=== PATIENT | female | born 1955 | race Caucasian/White ===

== ENCOUNTER 2016-12-13 05:34 | Inpatient (IN) | payer OTHER ==
--- NOTE | 2016-12-12 15:24 | GHP ---
[f rep st] PREOP HISTORY AND PHYSICAL DATE OF ADMISSION: 12/13/2016 HISTORY: The patient is a 61-year-old female who presents with left hip pain. Her left hip is painf ul. She has limited motion. She has aching into her thigh. This is causing her to limp, impacting her gait and significantly impacting her quality of life and activities of daily living. She has tri ed conservative measures, including anti-inflammatory medication, and has tried to stay active and ma intain her motion and fitness. Her x-ray shows severe left hip osteoarthritis, [id number], through out the hip joint. There is subchondral sclerosis, degenerative lipping. A left total hip arthropla sty is planned. PAST SURGICAL HISTORY: The patient has had her right hip replaced and that was back in February. She has had a radial head resection for a comminuted fracture in April of 2015. PAST MEDICAL HISTORY: She has a history of arthritis and mild depression. MEDICATIONS: Include omeprazole 20 mg tablets p.o. daily, meloxicam 15 mg p.o. daily, bupropion hydr ochloride XR 150 mg daily, venlafaxine ER 75 mg extended release 1 tablet with breakfast. ALLERGIES: She has an allergy to sulfa. SOCIAL HISTORY: She is a nonsmoker. REVIEW OF SYSTEMS: Is negative for cardiopulmonary disease. PHYSICAL EXAM: GENERAL: The patient is a well-developed, well-nourished female in no apparent distr ess. HEAD AND NECK: Normocephalic, atraumatic. CHEST: Clear. CARDIOVASCULAR: Regular rate and r hythm. ABDOMEN: Soft. NEUROLOGIC: She is alert and oriented x3. EXTREMITIES: Examination of the left hip shows shortening of about 5 mm or so. She has only 90 degrees of flexion then pain, only 3 0 degrees of adduction, really no internal rotation, 10 degrees of external rotation. Her replaced r ight hip is flexible and pain-free. On the left side, her neurovascular exam appears intact. IMAGING: X-ray, as described, shows a stable right total hip. On the left side, she has bone-to-bon e wear, subchondral sclerosis, degenerative lipping, and radiographically and clinically she has a li ttle shortening on the left as well. IMPRESSION: Left hip osteoarthritis. PLAN: The planned procedure is a left total hip arthroplasty. The benefits and risks of surgery have been reviewed. She understands that the risks include infecti on, damage to blood vessels and nerves, failure or loosening of components and need for revision, blo od clot in the leg or lungs, bleeding and the need for transfusion, and she is well aware of the reha b process having gone through this on the opposite side. She has signed the consent form and wishes to proceed. /[id number]/MODL
[2016-12-13] MEDS ORDERED: ROPIVACAINE 0.2% 80 MG, EPINEPHrine 0.2 MG, KETOROLAC TROMETHAMINE 30 MG in BAG 0 ML IU ONE (06:00)
[2016-12-13] MEDS ORDERED: TRANEXAMIC ACID IV ONE (06:00)
[2016-12-13] MEDS ORDERED: POVIDONE-IODINE 20 ML in SODIUM CL IRRIG SOLUTION 500 ML IRR ONE (06:00)
[2016-12-13] MEDS ORDERED: NS IV ONE (06:00)
[2016-12-13] MEDS ORDERED: ceFAZolin 2 GM/DEXTROSE 100 ML IV ONE (06:07)
[2016-12-13] MEDS ORDERED: FAMOTIDINE 20 MG TAB PO ONE (06:07)
[2016-12-13] MEDS ORDERED: DEXAMETHASONE 4 MG/ML VIAL IVP ONE (06:07)
[2016-12-13] MEDS ORDERED: ACETAMINOPHEN 325 MG TAB PO ONE (06:07)
[2016-12-13] MEDS ORDERED: LR 1,000 ML IV ONE (06:16)
[2016-12-13] MEDS ORDERED: MIDAZOLAM 2 MG/2 ML VIAL IVP ONE (06:46)
--- NOTE | 2016-12-13 06:46 | PDANEPAE ---
ANE History of Present Illness here for L EFREN ANE Past Medical History - Cardiovascular History Hx Hypertension: No Hx Arrhythmias: No Hx Chest Pain: No Hx Coronary Artery / Peripheral Vascular Disease: No Hx CHF / Valvular Disease: No Hx Palpitations: No - Pulmonary History Hx COPD: No Hx Asthma/Reactive Airway Disease: No Hx Recent Upper Respiratory Infection: No Hx Oxygen in Use at Home: No Hx Sleep Apnea: No Sleep Apnea Screening Result - Last Documented: Negative - Neurologic History Hx Cerebrovascular Accident: No Hx Seizures: No Hx Dementia: No - Endocrine History Hx Diabetes: No - Renal History Hx Renal Disorders: No - Liver History Hx Hepatic Disorders: No - Neurological & Psychiatric Hx Hx Neurological and Psychiatric Disorders: Yes Neurological / Psychiatric History Comment: depression. - Cancer History Hx Cancer: No - Congenital Disorder History Hx Congenital Disorders: No - GI History Hx Gastrointestinal Disorders: Yes Gastrointestinal History Comment: hiatal hernia - Other Health History Other Health History: none - Chronic Pain History Chronic Pain: No - Surgical History Prior Surgeries: april rx radius fixation ANE Review of Systems Review of Systems: - Exercise capacity METS (RN): 4 METS ANE Patient History - Allergies Allergies/Adverse Reactions: Sulfa (Sulfonamide Antibiotics) Allergy (Verified 11/11/16 14:31) Rash - Home Medications Home medications: home medication list seen and reviewed Home Medications: Meloxicam 15 mg PO DAILY 11/11/16 [Last Taken 12/06/16] Omeprazole [Prilosec 20 mg] 20 mg PO DAILY 11/11/16 [Last Taken 12/13/16 06:00] Venlafaxine Xr [Effexor Xr 75MG (*)] 75 mg PO DAILY 11/11/16 [Last Taken 06:00] buPROPion [Wellbutrin 75mg (*)] 75 mg PO DAILY 11/11/16 [Last Taken 12/13/16 06: 00] - NPO status NPO Status: no food or drink >8 hours NPO Since - Liquids (Date): 12/12/16 NPO Since - Liquids (Time): 21:00 NPO Since - Solids (Date): 12/12/16 NPO Since - Solids (Time): 18:00 - Anes Hx Anes Hx: no prior problems - Smoking Hx Smoking Status: Never smoked - Family Anes Hx Family Hx Anesthesia Complications: none ANE Labs/Vital Signs - Vital Signs Blood Pressure: 135/80 Heart Rate: 74 Respiratory Rate: 17 O2 Sat (%): 93 Height: 152.4 cm Weight: 74.389 kg ANE Physical Exam - Airway Neck exam: FROM Mallampati Score: Class 1 - Pulmonary Pulmonary: no respiratory distress - Cardiovascular Cardiovascular: regular rate and rhythym - ASA Status ASA Status: II ANE Anesthesia Plan Anesthesia Plan: spinal
[2016-12-13] MEDS ORDERED: DEXAMETHASONE 4 MG/ML VIAL ONE (06:56)
[2016-12-13] MEDS ORDERED: ceFAZolin 1 GM/5 ML SYR ONE (07:03)
[2016-12-13] MEDS ORDERED: fentaNYL 100 MCG/2 ML INJ ONE (07:06)
[2016-12-13] MEDS ORDERED: PROPOFOL/EMULSION 500 MG/50 ML BOTTLE IV ONE ×2 (07:08→08:13)
[2016-12-13] MEDS ORDERED: LR 500 ML IV PRN (07:54)
[2016-12-13] MEDS ORDERED: ALBUTEROL 3 ML DEYVIAL IH PRN (07:54)
[2016-12-13] MEDS ORDERED: HYDROCODONE/APAP 5/325 TAB PO PRN (07:54)
[2016-12-13] MEDS ORDERED: fentaNYL 100 MCG/2 ML INJ IVP PRN (07:54)
[2016-12-13] MEDS ORDERED: NALOXONE HCL 0.4 MG/ML INJ IVP PRN (07:54)
[2016-12-13] MEDS ORDERED: ONDANSETRON 4 MG/2 ML VIAL IVP PRN ×2 (07:54→09:55)
[2016-12-13] MEDS ORDERED: ONDANSETRON 4 MG/2 ML VIAL ONE (08:02)
[2016-12-13] MEDS ORDERED: epHEDrine SULFATE 10 MG/ML SYR ONE ×2 (08:15→08:25)
[2016-12-13] MEDS ORDERED: BISACODYL 10 MG SUPP PR PRN (09:55)
[2016-12-13] MEDS ORDERED: LACTULOSE 20 GM/30 ML UDCUP PO PRN (09:55)
[2016-12-13] MEDS ORDERED: CYCLOBENZAPRINE 10 MG TAB PO PRN (09:55)
[2016-12-13] MEDS ORDERED: PROMETHAZINE HCL 25 MG/ML INJ IVP PRN (09:55)
[2016-12-13] MEDS ORDERED: diphenhydrAMINE 25 MG CAP PO PRN (09:55)
[2016-12-13] MEDS ORDERED: POLYETHYLENE GLYCOL 3350 17 GM PKT PO PRN (09:55)
[2016-12-13] MEDS ORDERED: MAGNESIUM HYDROXIDE 30 ML UDCUP PO PRN (09:55)
[2016-12-13] MEDS ORDERED: ONDANSETRON DISINTEGRATING 4 MG TAB PO PRN (09:55)
[2016-12-13] MEDS ORDERED: DIPHENOXYLATE/ATROPINE LOMOTIL 1 TAB PO PRN (09:55)
[2016-12-13] MEDS ORDERED: METOCLOPRAMIDE 10 MG/2 ML VIAL IVP PRN (09:55)
[2016-12-13] MEDS ORDERED: PROMETHAZINE HCL 25 MG SUPPR PR PRN (09:55)
--- NOTE | 2016-12-13 10:54 | POSTANESTH ---
Post Anesthetic Evaluation Cardiovascular Status: Normal, Stable Respiratory Status: Normal, Stable Level of Consciousness/Mental Status: Can Participate in Eval Pain Control: Adequate, Prn Tx Ordered Nausea/Vomiting Control: Adequate, Prn Tx Ordered Complications Possibly Related to Anesthesia: None Noted
--- NOTE | 2016-12-13 11:38 | GOP ---
[f rep st] OPERATIVE REPORT DATE OF OPERATION: 12/13/2016 SURGEON: Ranjit Sarabia MD SAP CRM DEVELOPER: Esteban Souza [facility], A ANESTHESIOLOGIST: Justo Munoz MD PREOPERATIVE DIAGNOSIS: Left hip osteoarthritis. POSTOPERATIVE DIAGNOSIS: Left hip osteoarthritis. PROCEDURE PERFORMED: Left total hip arthroplasty. FINDINGS: SPECIMENS: Excised bone. My teaching assistant was a medical necessity for this total hip replacement. ESTIMATED BLOOD LOSS: About 50 cc. INDICATIONS: The patient is a 61-year-old female, who presents with history, exam and x-rays consist ent with severe left hip osteoarthritis. DESCRIPTION OF PROCEDURE: Preoperatively, she received 2 g of IV Ancef as well as tranexamic acid do se. On the OR table, she was seated, and a spinal anesthetic administered by Dr. Munoz. She then r eceived IV sedation. She was positioned on the table right side down, operative left hip up on a PEG board. All bony prominences were well padded. We used an axillary roll. The left hip and lower ex tremity were prepped and draped with chlorhexidine free in the usual fashion. I used a posterior demario arreaga to the left hip with a gently curving incision off the posterior aspect of the greater trochant er. Dissection was carried down to the subcutaneous tissue. I incised through the IT band, then car ried that through the trochanteric bursa into the fascia of the gluteus, and this was bluntly spread. I identified the sciatic nerve; it was protected throughout the case. The external rotators were i dentified. I released and tagged piriformis and the more distal short rotators, and these were tagge d with FiberWire suture. The capsule was opened posteriorly and tagged at its edge with 2 FiberWire sutures as well. I placed a pin superior to the acetabulum and a drill point in the trochanter, and measured a pre-dislocation leg length. My aim was to lengthen her about 5 mm. The hip was gently di slocated. I made a saw cut at the neck using a neck cutting guide, leaving about 10 mm of calcar. I placed a posterior and anterior retractor and excised degenerative labrum. This was a small acetabu lum, and I started at about 46 reamer and worked my way up to a size 49, deepening the acetabulum to bleeding bone. I did bone graft a few superior bone cysts. A size 50 Regenerex cup was an excellent press-fit in 40 degrees of opening angle and 20 degrees of anteversion. I placed a trial liner. I then exposed the proximal femur at the neck, entered the canal with an awl. For the Taperloc Complet e stem, I started with a small size broach around 4 and worked my way up to a size 8. Trial reductio ns proved I was in the appropriate range for my leg length plan. I then removed the broach, I remove d the trial liner. I placed a cross-link polyethylene, vitamin E infused liner to accommodate a 32 h ead, I used the +3 Max-Rom version. I then press-fit a size 8 standard offset Taperloc standard poro us-coated stem in about 15-20 degrees of anteversion. This was a solid press-fit. I went through tr ial reductions again and chose a 32 ceramic head, -3 neck. This was placed on the trunnion, and the hip reduced. She had excellent stability. By intraoperative measurements, I lengthened her 5-6 mm. She had excellent stability in flexion, adduction and internal rotation. Copious antibiotic irrigat ion was used in the joint, and I used a Betadine solution rinse as well. I drilled 2 holes in the tr ochanter and I passed the capsular and short rotator sutures through it, and these were tied separate ly with multiple knots, and this provided a good posterior soft tissue repair. The sciatic nerve was checked, and it looked fine. The wound was dry. I did not need a drain. I closed the fascia with interrupted [id number] sutures of 0 Mersilene, subcutaneous tissue with 2-0 Monocryl, and the sk in with a 3-0 Monoderm reinforced with tissue glue, Telfa and a Tegaderm. There were no complications, no drains. All counts were correct, and the patient was taken in stable condition to recovery. SUMMARY OF COMPONENTS: This is a Biomet total hip system. All components press-fit, the cup is 50 m m Regenerex with an antioxidant-infused poly liner +3. This is a Max-Rom liner. The stem is a Taper loc standard complete, size 8. The head is ceramic 32 mm, -3 neck. /[id number]/MODL
[2016-12-13] MEDS: ACETAMINOPHEN 325 MG TAB PO SCH ×3 (12:06→23:44)
[2016-12-13] MEDS: KETOROLAC 30 MG/1 ML SDV IVP PRN ×2 (12:08→23:44)
[2016-12-13] MEDS: LR 1,000 ML IV SCH (14:23)
[2016-12-13] MEDS: ceFAZolin 2 GM/DEXTROSE 100 ML IV SCH ×2 (14:23→21:37)
--- NOTE | 2016-12-13 17:13 | ASMTCMCOM ---
CM Note CM Note Notes: Pt is s/p L EFREN. Will need SNF d/c. Would like [facility]. Referral sent. Hx mild depression. PT/OT pending. CM to follow for d/c needs. Date Signed: 12/13/2016 05:12 PM Electronically Signed By:LEE Myers
[2016-12-13] MEDS: ASPIRIN 325 MG TAB PO SCH (21:37)
[2016-12-13] MEDS: SENNOSIDES/DOCUSATE SODIUM TAB PO SCH (21:38)
[2016-12-13] MEDS: FAMOTIDINE 20 MG TAB PO SCH (21:38)
[2016-12-13] MEDS: TEMAZEPAM 15 MG CAP PO PRN ×2 (21:39→23:44)
[2016-12-13] MEDS: oxyCODONE IR 5 MG TAB PO PRN ×2 (21:42→23:26)
[2016-12-14] MEDS: LR 1,000 ML IV SCH (05:27)
[2016-12-14] MEDS: ACETAMINOPHEN 325 MG TAB PO SCH ×3 (05:27→17:12)
[2016-12-14 05:34] LABS: HEMATOCRIT 31.3 % (38.0-47.0); HEMOGLOBIN 10.3 g/dL (12.6-16.3)
--- NOTE | 2016-12-14 08:00 | SOAPPROG ---
SOAP Progress Note Assessment/Plan: Assessment: POD#1 L EFREN, Hct 31, xray fine, dressing intact Plan: 12/14/16 07:59 mobilize with PT, to rehab, asa, oxy Objective: Vital Signs Temp Pulse Resp BP Pulse Ox 36.9 C 67 16 95/54 L 99 12/14/16 04:00 12/14/16 05:22 12/14/16 05:22 12/14/16 05:22 12/14/16 05:22 Laboratory Results 12/14/16 04:45 12/13/16 12/14/16 12/15/16 05:59 05:59 05:59 Intake Total 2910 Output Total 1125 Balance 1785 ICD10 Worksheet Patient Problems: Problems Problem Status Onset Osteoarthritis of left hip Acute - ICD10 Problem Qualifiers (1) Osteoarthritis of left hip
--- NOTE | 2016-12-14 08:09 | PDIAF ---
- Diagnosis Diagnosis: left hip osteoarthritis Code Status: Full Code - Medication Management Discharge Medications: Medications to Continue on Transfer Meloxicam 15 mg PO DAILY 11/11/16 [Last Taken 12/06/16] Omeprazole [Prilosec 20 mg] 20 mg PO DAILY 11/11/16 [Last Taken 12/13/16 06:00] Venlafaxine Xr [Effexor Xr 75MG (*)] 75 mg PO DAILY 11/11/16 [Last Taken 06:00] buPROPion [Wellbutrin 75mg (*)] 75 mg PO DAILY 11/11/16 [Last Taken 12/13/16 06: 00] Aspirin [Aspirin 325 mg (*)] 325 mg PO DAILY tab 12/14/16 [Last Taken Unknown] oxyCODONE IR [Oxycodone Ir (*)] 5 - 10 mg PO Q3HRS PRN tab 12/14/16 [Last Taken Unknown] Discharge Medications: Refer to the Discharge Home Medication list for PRN reason. - Orders Services needed: Physical Therapy Diet Recommendation: no restrictions on diet Diet Texture: Regular Texture Diet Jesse Stockings Discontinue Date: 2 wks Wound Care Instructions: may leave tegaderm dressing on Sutures/[place] Site: wound is glued Activity/Weight Bearing Restrictions: WBAT, hip precautions, posterior approach - Follow Up Care Current Providers and Referrals: JHON GONZALEZ [Other]
[2016-12-14] MEDS: SENNOSIDES/DOCUSATE SODIUM TAB PO SCH ×2 (09:11→21:09)
[2016-12-14] MEDS: ASPIRIN 325 MG TAB PO SCH (09:12)
[2016-12-14] MEDS: VENLAFAXINE XR 75 MG CAP PO SCH (09:12)
[2016-12-14] MEDS: buPROPion 75 MG TAB PO SCH (09:12)
[2016-12-14] MEDS: PANTOPRAZOLE SODIUM 40 MG TAB PO SCH (09:12)
[2016-12-14] MEDS: FAMOTIDINE 20 MG TAB PO SCH ×2 (09:13→21:09)
[2016-12-14] MEDS: Meloxicam [Meloxicam] 15 MG PO SCH (09:14)
[2016-12-14] MEDS: oxyCODONE IR 5 MG TAB PO PRN ×2 (17:12→22:10)
[2016-12-14] MEDS: TEMAZEPAM 15 MG CAP PO PRN (22:10)
[2016-12-15 00:57] VITALS: RESP 16
[2016-12-15] MEDS: ACETAMINOPHEN 325 MG TAB PO SCH ×3 (01:26→12:51)
[2016-12-15] MEDS: TEMAZEPAM 15 MG CAP PO PRN (01:27)
[2016-12-15] MEDS: oxyCODONE IR 5 MG TAB PO PRN ×3 (01:28→12:52)
[2016-12-15 05:01] LABS: HEMATOCRIT 28.6 % (38.0-47.0); HEMOGLOBIN 9.8 g/dL (12.6-16.3)
[2016-12-15 07:42] VITALS: BP 95/48; PULSE 81; TEMP 99.2; O2SAT 86
[2016-12-15] MEDS: VENLAFAXINE XR 75 MG CAP PO SCH (09:52)
[2016-12-15] MEDS: ASPIRIN 325 MG TAB PO SCH (09:52)
[2016-12-15] MEDS: FAMOTIDINE 20 MG TAB PO SCH (09:53)
[2016-12-15] MEDS: buPROPion 75 MG TAB PO SCH (09:53)
[2016-12-15] MEDS: PANTOPRAZOLE SODIUM 40 MG TAB PO SCH (09:53)
[2016-12-15] MEDS: SENNOSIDES/DOCUSATE SODIUM TAB PO SCH (09:53)
[2016-12-15] MEDS: Meloxicam [Meloxicam] 15 MG PO SCH (09:57)
--- NOTE | 2016-12-15 13:35 | ASMTCMCOM ---
CM Note CM Note Notes: Pt medically stable for d/c to [facility] who obtained insurance auth today Date Signed: 12/15/2016 01:34 PM Electronically Signed By:LEE Tilley
--- NOTE | 2016-12-15 13:35 | ASDISCHSUM ---
Discharge Information Plan Status:SNF Medically Cleared to Leave: Discharge Date:12/15/2016 12:55 PM D/C Disposition:[facility] ADT D/C Disposition:Other Rehab, Not [place] Projected Discharge Date:12/15/2016 11:00 AM Transportation at D/C: Discharge Delay Reason: Follow-Up Date:12/15/2016 11:00 AM Discharge Slot: Final Diagnosis: Placement Information Referral Type:*Group Home/SNF Referral ID:[id number] Provider Name:[facility] Address 1:[address] Address 2: City:[place] Selection Factors: State:[place] Patient Contact Information Contact Name:CHESTER Relationship:Son Address: Work Phone: City:[place] Alternate Phone: [facility] [[email or web address]] Code:[place] Email: Financial Information Financial Class:HMO and PPO Plans Primary Plan Desc:HMO [employer] [employer] Primary Plan Number:[id number] Secondary Plan Desc: Secondary Plan Number: Assessment Information [facility] CM Progress Note CM Note CM Note Notes: Pt is s/p L EFREN. Will need SNF d/c. Would like [facility] per Priscilla. Referral sent. Hx mild depression. PT/OT pending. CM to follow for d/c needs. Date Signed: 12/13/2016 05:12 PM Electronically Signed By:LEE Myers [facility] CM Progress Note CM Note CM Note Notes: Pt medically stable for d/c to [facility] who obtained insurance auth today Date Signed: 12/15/2016 01:34 PM Electronically Signed By:LEE Tilley Intervention Information
== END 2016-12-15 12:55 | DRG 470 ==
LOC: F3N 05:34
PROVIDERS: ADMIT Orthopaedic Surgery; ATTEND Orthopaedic Surgery
PROC: 0SRB04Z Replacement of Left Hip Joint with Ceramic on Polyethylene Synthetic Substitute, Open Approach (ICD-10-PCS; principal; 2016-12-13 07:15)
DX: M16.12 Unilateral primary osteoarthritis, left hip (principal); Z96.641 Presence of right artificial hip joint
CPT/HCPCS: 97116-GP; 97161-GP; 97165-GO; 97530-GO; 97530-GP; 97535-GO; J0171; J0690; J1100; J1885; J2250; J2405; J2704; J2795; J3010